=== PATIENT | male | born 1970 | race American Indian/Alaskan Native ===

== ENCOUNTER 2017-02-17 17:32 | Emergency (ER) | payer OTHER ==
[2017-02-17 17:48] VITALS: PULSE 110
[2017-02-17 18:36] LABS: RBC URINE 1 /hpf (0-3); URINE BILIRUBIN NEGATIVE (NEGATIVE); URINE BLOOD NEGATIVE (NEGATIVE); URINE COLOR Yellow (YELLOW); URINE GLUCOSE (UA) NORMAL (Normal); URINE KETONE NEGATIVE (NEGATIVE); URINE LEUKOCYTE ESTERASE NEG Leu/uL (Negative); URINE PROTEIN 1+ mg/dL (NEGATIVE); URINE UROBILINOGEN NORMAL mg/dL (0.2-1.0); WBC URINE < 1 /hpf (0-5)
--- NOTE | 2017-02-17 18:45 | C.PDOC ---
History Of Present Illness 47 year old male with a history of COPD, CHF, and Type II Diabetes presents to the ED with complaints of nausea, chills, and lower back pain that is non- radiating beginning earlier today. Patient also notes shortness of breath, light headache, loose stool, lightheadedness, and one episode of vomiting on way to ED that appeared brown but did not contain blood. He is using an insulin pump and has defibrillator. Patient denies use of medication for pain, chest pain, cough, fever, or constipation. Time Seen by Provider: 02/17/17 17:58 Chief Complaint (Nursing): Abdominal Pain History Per: Patient History/Exam Limitations: no limitations Current Symptoms Are (Timing): Still Present Severity: Severe Pain Scale Rating Of: 7 Radiation Of Pain To:: None Quality Of Discomfort: "Pain" Associated Symptoms: Chills, Nausea, Vomiting. denies: Fever, Urinary Symptoms Last Bowel Movement: Today Recent travel outside of the [place]: No Past Medical History Reviewed: Historical Data, Nursing Documentation, Vital Signs Vital Signs: Last Vital Signs Temp 99.8 F H 02/17/17 17:47 Pulse 110 H 02/17/17 17:47 Resp 18 02/17/17 17:47 BP 137/79 02/17/17 17:47 Pulse Ox 100 02/17/17 18:54 - Medical History PMH: CHF, COPD, Sleep Apnea Surgical History: Pacemaker (DEFIBRILATOR) Family History: States: Unknown Family Hx - Social History Hx Alcohol Use: Yes Hx Substance Use: No - Immunization History Hx Tetanus Toxoid Vaccination: No Hx Influenza Vaccination: Yes Hx Pneumococcal Vaccination: Yes Review Of Systems Constitutional: Positive for: Chills. Negative for: Fever Cardiovascular: Negative for: Chest Pain, Palpitations Gastrointestinal: Positive for: Nausea, Vomiting (1 episode ), Other (loose stool ). Negative for: Abdominal Pain, Constipation Musculoskeletal: Positive for: Back Pain Neurological: Positive for: Headache ("light headache" ), Other (lightheadedness ) Physical Exam - Physical Exam Appears: Non-toxic, No Acute Distress, Other (patient is sitting comfortably but is conversationally short of breath. ) Skin: Warm, Dry Head: Atraumatic Eye(s): bilateral: Normal Inspection Oral Mucosa: Moist Neck: Supple Chest: Symmetrical, No Deformity Cardiovascular: Rhythm Regular, No Murmur Respiratory: Decreased Breath Sounds Gastrointestinal/Abdominal: Soft, No Tenderness, No Distention, No Guarding, No Rebound Extremity: Normal ROM, No Tenderness, No Calf Tenderness, Capillary Refill ( good capillary refill, less than two seconds ), No Deformity, Other (+1 pitting edema of the lower extremities ) Neurological/Psych: Oriented x3, Normal Speech, Normal Cognition, Normal Motor, Normal Sensation ED Course And Treatment - Laboratory Results Result Diagrams: 02/17/17 18:50 02/17/17 18:50 ECG: Interpreted By Me, Viewed By Me ECG Rhythm: Sinus Tachycardia Rate From EC O2 Sat by Pulse Oximetry: 100 (room air ) - Radiology CXR: Interpreted by Me, Viewed By Me Progress Note: EKG, CXR, and bloow work were ordered. Disposition - Disposition Disposition Time: 19:13 Condition: STABLE Forms: [facility] (Bel[place]ian) - Clinical Impression Clinical Impression: SOB (shortness of breath), Back pain - Scribe Statement The provider has reviewed the documentation as recorded by the Scribe Analia Caba All medical record entries made by the Scribe were at my direction and personally dictated by me. I have reviewed the chart and agree that the record accurately reflects my personal performance of the history, physical exam, medical decision making, and the department course for this patient. I have also personally directed, reviewed, and agree with the discharge instructions and disposition. Physician Patient Turnover Patient Signed Over To: Dylon Harris Handoff Comments: patient with COPD, CHF c/o chils, back pain.
[2017-02-17 18:54] LABS: BASO # 0.1 K/uL (0.0-0.2); BASO % 0.9 % (0.0-2.0); EOS # 0.1 K/uL (0.0-0.7); EOS % 0.7 % (0.0-4.0); HEMATOCRIT 35.5 % (35.0-51.0); LYMPH # 0.4 K/uL (1.0-4.3); MEAN CELL VOLUME 82.1 fL (80.0-94.0); MEAN CORPUSCULAR HEMOGLOBIN 27.1 pg (27.0-31.0); MEAN PLATELET VOLUME 9.2 fL (7.2-11.7); MONO # 0.6 K/uL (0.0-0.8); MONO % 5.4 % (0.0-10.0); PLATELET COUNT 207 K/uL (130-400); RED CELL DISTRIBUTION WIDTH 14.4 % (11.5-14.5)
[2017-02-17 19:06] LABS: ALB/GLOB RATIO 1.3 (1.0-2.1); ALKALINE PHOSPHATASE 93 U/L (38-126); ALT/SGPT 32 U/L (21-72); AST/SGOT 19 U/L (17-59); BILIRUBIN,TOTAL 0.5 mg/dL (0.2-1.3); BLOOD UREA NITROGEN 34 mg/dL (9-20); CALCIUM 8.4 mg/dl (8.6-10.4); CARBON DIOXIDE 26 mmol/L (22-30); CHLORIDE 101 mmol/L (98-107); GFR AFRICAN-AMERICAN > 60; GLUCOSE,RANDOM 68 mg/dL (75-110); POTASSIUM 4.2 mmol/L (3.6-5.2); SODIUM 142 mmol/L (132-148); TOTAL PROTEIN 7.4 g/dL (6.3-8.3)
[2017-02-17 19:41] LABS: BASOPHIL 1 % (0-2); NEUTROPHIL 91 % (50-75); TOTAL CELLS COUNTED 100
--- NOTE | 2017-02-17 21:49 | CT ---
EXAM: CT Abdomen and Pelvis Without Intravenous Contrast CLINICAL HISTORY: 47 years old, male; Pain; Abdominal pain; Flank; Lower; Additional info: Abd pain, TECHNIQUE: Axial computed tomography images of the abdomen and pelvis without intravenous contrast. All CT scans at this facility use one or more dose reduction techniques, viz.: automated exposure control; ma/kV adjustment per patient size (including targeted exams where dose is matched to indication; i.e. head); or iterative reconstruction technique. Coronal and sagittal reformatted images were created and reviewed. COMPARISON: No relevant prior studies available. FINDINGS: Limitations: Motion artifact - mild. Lower thorax: Pacemaker leads. Small hiatal hernia. ABDOMEN: Liver: Unremarkable. Gallbladder and bile ducts: No calcified stones. No ductal dilation. Pancreas: Unremarkable. No ductal dilation. Spleen: No splenomegaly. Adrenals: No mass. Kidneys and ureters: Mild stranding about kidneys, nonspecific. No renal calculi. No hydronephrosis. Stomach and bowel: No definite mural thickening. No obstruction. Appendix: Normal caliber. No inflammation. PELVIS: Bladder: Apparent mild bladder wall thickening. Incomplete distention, limiting evaluation. No stones. Reproductive: Unremarkable as visualized. ABDOMEN and PELVIS: Intraperitoneal space: No significant fluid collection. No free air. Bones/joints: No acute fracture. Soft tissues: Minimal LEFT gynecomastia. Small umbilical hernia containing fat. Vasculature: Mild atherosclerotic disease. No aneurysm. Lymph nodes: Several subcentimeter/few mildly enlarged short axis inguinal lymph nodes. IMPRESSION: 1. No CT evidence of urolithiasis. 2. Perinephric stranding, nonspecific. Correlate with urinalysis to exclude infection. 3. Mild cystitis vs underdistention. Correlate with urinalysis. 4. Incidental/non-acute findings are described above.
[2017-02-17 23:19] VITALS: BP 132/76; RESP 20; TEMP 99; O2SAT 98
--- NOTE | 2017-02-18 09:19 | RAD ---
HISTORY: Shortness of breath COMPARISON: No prior. TECHNIQUE: Chest PA and lateral FINDINGS: LUNGS: Mild venous congestion. PLEURA: No significant pleural effusion identified. No pneumothorax apparent. CARDIOVASCULAR: Left-sided pacemaker. OSSEOUS STRUCTURES: No significant abnormalities. VISUALIZED UPPER ABDOMEN: Normal. OTHER FINDINGS: None. IMPRESSION: Mild venous congestion.
== END 2017-02-17 23:17 | disposition home or self-care (01) ==
LOC: C.ER 17:32
DX: M54.9 Dorsalgia, unspecified (principal); R06.02 Shortness of breath
CPT/HCPCS: 71020; 74176; 80053; 80324; 80345; 80346; 80349; 80353; 80358; 80361; 81001; 82948; 83880; 83992; 84484; 85025; 87804; 96374; 99285; J1885